=== PATIENT | male | born 1965 | race Caucasian/White ===

== ENCOUNTER 2020-03-16 08:55 | Outpatient (CLI) | payer MEDICARE, MEDICAID, SELFPAY ==
--- NOTE | 2020-03-16 08:59 | ECG_ITS ---
Measurements Intervals [place] Rate: 50 P: 51 NH: 169 QRS: 79 QRSD: 104 T: 39 QT: 477 QTc: 435 Interpretive Statements SINUS BRADYCARDIA BORDERLINE ST ABNORMALITY- INFERIOR LEADS BASELINE ARTIFACT- I, III, AVR, AVL, AVF, V1-V6 ABNORMAL ECG Electronically Signed On 03-16-2020 9:23:56 CDT by Mikel Tripathi D.O.
[2020-03-16 09:56] LABS: Digoxin 0.5 ng/mL (0.8-2.0)
== END 2020-03-16 08:56 | disposition home or self-care (01) ==
LOC: ANHSURGERY 08:59
PROVIDERS: PCP Internal Medicine; Visit Provider Urology
DX: Z01.818 Encounter for other preprocedural examination (principal); I10 Essential (primary) hypertension; Z51.81 Encounter for therapeutic drug level monitoring; R94.31 Abnormal electrocardiogram [ECG] [EKG]
CPT/HCPCS: 36415; 80162; 93005

== ENCOUNTER 2020-03-24 00:30 | Outpatient (CLI) | payer MEDICARE, MEDICAID, SELFPAY ==
[2020-03-24 17:31] LABS: SARS-CoV-2 RNA PCR Negative
== END 2020-03-24 00:31 | disposition home or self-care (01) ==
LOC: ANHCOVIDDT 00:31
PROVIDERS: PCP Internal Medicine; Visit Provider Urology
DX: Z01.818 Encounter for other preprocedural examination (principal); Z11.59 Encounter for screening for other viral diseases
CPT/HCPCS: 87635; C9803; U0003

== ENCOUNTER 2020-03-26 01:19 | Day surgery (SDC) | payer MEDICARE, MEDICAID, SELFPAY ==
[2020-03-09 13:27] VITALS: BMI 26.2
--- NOTE | 2020-03-26 06:55 | WPDHPUPDATE1 ---
History and Physical Update Update Date/Time: 03/26/20 06:55 History and Physical has been reviewed, including an updated exam of the patient. There are NO changes in the patient's condition. Risks, benefits, and alternatives have been discussed and questions answered. Patient agrees to proceed with procedure.
--- NOTE | 2020-03-26 09:27 | WPDANESEPPF ---
Anes - Initial Pre Proc Eval Procedure: Operation Date: 03/26/20 14:00 Proposed Procedures p Cystoscopy, Urethral Dilatation - Dedrick Cotto MD Date/Time: 03/26/20 09:27 Surgeon: Dedrick Cotto MD Pre Op Diagnosis: BPH, Bladder Neck Contracture Patient Data Age: 54 Gender: M Height: 1.85 m Weight: 90 kg Allergies Allergy/AdvReac Type Severity Reaction Status Date / Time haloperidol [From Haldol] AdvReac MAKE HIM Verified 03/09/20 13:31 MORE AWAKE phenobarbital AdvReac INCREASED Verified 03/09/20 13:31 SEIZURES risperidone [From Risperdal] AdvReac Shakiness Verified 03/09/20 13:31 Home Medications Medication Instructions Recorded Confirmed Type acetaminophen-codeine 1 tablet PO Q8H PRN 03/09/20 03/09/20 History albuterol sulfate [ProAir HFA] 2 puff INHALATION QID PRN 03/09/20 03/09/20 History atorvastatin 20 mg PO DAILY 03/09/20 03/09/20 History carbamazepine 200 mg PO Q12H 03/09/20 03/09/20 History carvedilol 12.5 mg PO BID 03/09/20 03/09/20 History clonidine HCl 0.1 mg PO TID 03/09/20 03/09/20 History dabigatran etexilate [Pradaxa] 150 mg PO BID 03/09/20 03/09/20 History digoxin 125 mcg PO DAILY 03/09/20 03/09/20 History ezetimibe 10 mg PO DAILY 03/09/20 03/09/20 History finasteride 5 mg PO DAILY 03/09/20 03/09/20 History fluticasone furoate-vilanterol 1 inh INHALATION DAILY 03/09/20 03/09/20 History [Breo Ellipta] gabapentin 600 mg PO BID 03/09/20 03/09/20 History losartan 50 mg PO DAILY 03/09/20 03/09/20 History methocarbamol 750 mg PO TID 03/09/20 03/09/20 History mirabegron [Myrbetriq] 50 mg PO DAILY 03/09/20 03/09/20 History mirtazapine 45 mg PO HS 03/09/20 03/09/20 History omeprazole 20 mg PO DAILY 03/09/20 03/09/20 History tamsulosin 0.4 mg PO HS 03/09/20 03/09/20 History trazodone 300 mg PO HS 03/09/20 03/09/20 History ECG: Date of Service: 03/16/20 Procedure(s): CA 12 lead EKG Accession Number(s): [id number] cc: ~ Measurements Intervals [place] Rate: 50 P: 51 MA: 169 QRS: 79 QRSD: 104 T: 39 QT: 477 QTc: 435 Interpretive Statements SINUS BRADYCARDIA BORDERLINE ST ABNORMALITY- INFERIOR LEADS BASELINE ARTIFACT- I, III, AVR, AVL, AVF, V1-V6 ABNORMAL ECG Electronically Signed On 03-16-2020 9:23:56 CDT by Mikel Tripathi D.O. Dictated By: Mikel Tripathi DO 03/16/20 0932 Patient hx anesthesia problems: none Family hx anesthesia problems: none PMFSH Past Medical History Medical History Anxiety Arthritis Asthma CAD (coronary artery disease) COPD (chronic obstructive pulmonary disease) CVA (cerebral vascular accident) no deficits Depression Gastroesophageal reflux disease HTN (hypertension) Hypercholesterolemia GALEN (obstructive sleep apnea) Surgical History Surgical History History of coronary artery stent placement Hx of cardiac catheterization strent Anes - Eval Final PreProcedure Day of Procedure 03/26/20 09:27 Patient weight: overweight Heart: regular rate and rhythm Lungs: clear to auscultation and normal air movement Airway: Mallampati scale class II Neurological: alert and oriented Last oral intake: >/= 8 hours ASA classification: III Emergent: no Anesthetic plan: proceed Anesthesia type and monitoring: general LMA Informed Consent: The patient's anesthetic plan and its attendant risks and benefits were discussed with the patient/family/POA. Questions were solicited and answers provided to the satisfaction of the patient/family/POA.
[2020-03-26] MEDS: LACTATED RINGERS 1,000 ML 30 ML IV CONT (11:25)
[2020-03-26 11:32] VITALS: BP 122/74; PULSE 64; RESP 20; TEMP 36.8; O2SAT 97
[2020-03-26] MEDS: ceFAZolin 2 GM/D5W 50 ML 2 GM/50 ML BAG IVPB (13:56)
[2020-03-26 14:26] VITALS: BP 90/61; PULSE 70; RESP 8; TEMP 36.5; O2SAT 95
--- NOTE | 2020-03-26 14:35 | PM.PROC ---
Procedure Note - Detailed Date of procedure: 03/26/20 Pre-op diagnosis: BPH, Bladder Neck Contracture Post-op diagnosis: same Procedure performed: Cystoscopy, urethral dilataton Description of procedure: The patient was brought to the operative suite where he was prepped and draped in a routine sterile fashion while in a dorsal lithotomy position after the uneventful induction of a general LMA anesthetic. Cystoscopy was undertaken with a 19F rigid cystoscope. There was no urethral strictures but a tight bladder neck contracture.. The prostatic urethral estimated length was 1.0cm and showed evidence of prior TURP. There was no obstruction of the prostatic urethra with no median lobe enlargement. The bladder itself was endoscopically normal without foreign body or neoplasm. The bladder mucosa was without hyperemia. There was a single orthotopic ureteral orifice bilaterally with clear efflux of urine. Using the Kellen sounds I dilated the urethra and bladder neck from 14F -> 28F. The bladder was emptied and the patient was taken to the recovery room in good condition Anesthesia: GLMA Surgeon: Dedrick Cotto MD Estimated blood loss (mL): 0 Drains: No Packing: No Pathology: none sent Complications: No immediate complications Condition: stable Disposition: PACU
[2020-03-26 14:41] VITALS: BP 142/88; PULSE 67; RESP 17; O2SAT 94
[2020-03-26 14:55] VITALS: BP 133/83; PULSE 64; RESP 11; TEMP 36.4; O2SAT 92
[2020-03-26 15:05] VITALS: BP 146/82; PULSE 60
[2020-03-26 15:35] VITALS: BP 160/93; PULSE 57
--- NOTE | 2020-03-26 15:39 | SUR.PHASEII ---
1435: RN noted dried blood to bilateral groin when patient when to get dressed.
== END 2020-03-26 15:52 | disposition home or self-care (01) ==
PROVIDERS: PCP Internal Medicine; Visit Provider Urology
PROC: 0T7D8ZZ Dilation of Urethra, Via Natural or Artificial Opening Endoscopic (ICD-10-PCS; CPT 52281; principal; 2020-03-26 14:00)
DX: N40.0 Benign prostatic hyperplasia without lower urinary tract symptoms (principal); N32.0 Bladder-neck obstruction; I25.10 Atherosclerotic heart disease of native coronary artery without angina pectoris; I10 Essential (primary) hypertension; J44.9 Chronic obstructive pulmonary disease, unspecified; E78.00 Pure hypercholesterolemia, unspecified; G47.33 Obstructive sleep apnea (adult) (pediatric); K21.9 Gastro-esophageal reflux disease without esophagitis; F41.8 Other specified anxiety disorders; M19.90 Unspecified osteoarthritis, unspecified site; Z79.01 Long term (current) use of anticoagulants
CPT/HCPCS: 52281; A9270; J0690; J2250; J2704; J3010; J7120

== ENCOUNTER 2021-06-29 09:28 | Outpatient (CLI) | payer MEDICARE, MEDICAID, SELFPAY ==
--- NOTE | ~2021-06-29 | XR_ITS ---
EXAMINATION: XR abdomen/kub 1V INDICATION: Flank pain TECHNIQUE: Supine views of the abdomen were obtained on 2 radiographs. COMPARISON: None FINDINGS: No urolithiasis is identified. The visualized lung bases are clear. The bowel gas pattern i s normal. A moderate volume of colonic stool is present. Stents are noted in the coronary arteries as well as the superior mesenteric artery. IMPRESSION: 1. No urolithiasis identified. Reviewed, dictated and finalized at location A.
--- NOTE | ~2021-06-29 | CT_ITS ---
EXAMINATION: CT abdomen pelvis wo con DATE: 06/29/2021 10:03 INDICATION: Flank pain TECHNIQUE: Computed tomography (CT) of the abdomen and pelvis was performed without intravenous contr ast. The dose-length product (DLP) was 565.34 mGy-cm. Automated exposure control and iterative recons truction technique were employed. COMPARISON: None FINDINGS: There are patchy opacities of the visualized lung bases. The heart size is normal. Calcifie d coronary artery atherosclerosis is noted. The liver, spleen, pancreas, gallbladder, and adrenal gla nds are normal. An endoluminal stent is noted in the proximal superior mesenteric artery. The right k idney is unremarkable. There is a 9 mm cyst of the left kidney lower pole. No stones are identified i n the kidneys, ureters, or bladder. There is no hydronephrosis or hydroureter. No pathologically enla rged abdominal or pelvic lymph nodes are identified. There is no free intraperitoneal gas or evidence of bowel obstruction. The appendix is normal. Healed bilateral rib fractures are noted. There is a s mall umbilical hernia containing fat. There is mild lumbar spondylosis. IMPRESSION: 1. No CT correlate for the patient's symptoms. Reviewed, dictated and finalized at location A.
== END 2021-06-29 09:29 | disposition home or self-care (01) ==
LOC: ANHIMG 09:35
PROVIDERS: PCP Internal Medicine; Visit Provider Nurse Practitioner Adult Health
DX: R10.9 Unspecified abdominal pain (principal)
CPT/HCPCS: 74018; 74176